=== PATIENT | male | born 1940 | race Caucasian/White ===

== ENCOUNTER 2017-08-03 14:39 | Emergency (ER) | payer MEDICARE, OTHER ==
[2017-08-03] MEDS ORDERED: Sodium Chloride 0.9% 10 ML Syringe FLUSH PRN (14:43)
[2017-08-03] MEDS: Nitroglycerin 0.4 MG Tab.SL SL PRN ×2 (14:49→15:00)
--- NOTE | 2017-08-03 14:52 | EDM.PDOC ---
ED HPI GENERAL MEDICAL PROBLEM - General Chief Complaint: Chest Pain Stated Complaint: chest pain Time Seen by Provider: 08/03/17 14:40 Source of Information: Reports: Patient History Limitations: Reports: No Limitations - History of Present Illness INITIAL COMMENTS - FREE TEXT/NARRATIVE: Patient brought by private vehicle to ER for evaluation of central chest pain present since 10am today. Rates pain at a "2" overall. No nausea. No SOB. No respiratory changes. Was diaphoretic at one point. Lightheaded too. This has improved. Pain radiates down left arm slightly. No other complaints. Pain does not change based on activity/eating/drinking/positional changes. No history of CAD. Family history + for younger brother with CAD/Bypass. Patient denies any significant past health history otherwise. No prior similar episodes of pain. No particular trigger/activity when pain started today. Retired. Worked in construction. Non-smoker. Non-drinker except for rare holidays. gave him 6 baby ASA prior to coming to ER. Chest Pain Score (Numeric/FACES): 2 - Related Data Allergies Allergy/AdvReac Type Severity Reaction Status Date / Time No Known Allergies Allergy Verified 08/03/17 14:45 Home Meds: Home Meds DM Hb/PE/Acetaminophen/Chlorph [[place] Plus Cld-Cough] 1 each PO ONETIME 08/03/17 [History] Past Medical History - Past Health History Medical/Surgical History: Denies Medical/Surgical History Social & Family History - Family History Cardiac: Reports: Bypass, CAD - Tobacco Use Smoking Status *Q: Never Smoker - Alcohol Use Alcohol Use in Last Twelve Months: Yes Alcohol Use Frequency: Rarely ED ROS GENERAL - Review of Systems Review Of Systems: See Below Constitutional: Reports: Diaphoresis, Decreased Appetite. Denies: Fever, Chills , Malaise, Weakness, Fatigue, Night Sweats HEENT: Reports: No Symptoms Respiratory: Reports: No Symptoms. Denies: Shortness of Breath, Pleuritic Chest Pain Cardiovascular: Reports: Chest Pain, Lightheadedness. Denies: Dyspnea on Exertion, Edema, Orthopnea, Palpitations, PND, Syncope Endocrine: Reports: No Symptoms GI/Abdominal: Reports: No Symptoms. Denies: Abdominal Pain, Nausea, Vomiting : Reports: No Symptoms Musculoskeletal: Reports: Arm Pain (left). Denies: Joint Pain, Joint Swelling Skin: Reports: No Symptoms Neurological: Reports: No Symptoms Psychiatric: Reports: No Symptoms Hematologic/Lymphatic: Reports: No Symptoms Immunologic: Reports: No Symptoms ED EXAM, GENERAL - Physical Exam Exam: See Below Exam Limited By: No Limitations General Appearance: Alert, WD/WN, No Apparent Distress Eye Exam: Bilateral Eye: EOMI, Normal Inspection, PERRL Ears: Normal External Exam, Normal Canal, Hearing Grossly Normal, Normal TMs Nose: Normal Inspection, Normal Mucosa Throat/Mouth: Normal Inspection, Normal Lips, Normal Teeth, Normal Gums, Normal Oropharynx, Normal Voice, No Airway Compromise Head: Atraumatic, Normocephalic Neck: Normal Inspection, Supple, Non-Tender, Full Range of Motion Respiratory/Chest: No Respiratory Distress, Lungs Clear, Normal Breath Sounds, No Accessory Muscle Use, Chest Non-Tender Cardiovascular: Normal Peripheral Pulses, Regular Rate, Rhythm, No Edema, No Murmur. No: Diastolic Murmur, Systolic Murmur Peripheral Pulses: 2+: Radial (L), Radial (R) GI/Abdominal: Normal Bowel Sounds, Soft, Non-Tender, No Organomegaly, No Distention, No Mass (Male) Exam: Deferred Rectal (Males) Exam: Deferred Back Exam: Normal Inspection Extremities: Normal Inspection, Normal Range of Motion, Non-Tender, No Pedal Edema, Normal Capillary Refill Neurological: Alert, Oriented, CN II-XII Intact, Normal Cognition, Normal Gait, Normal Reflexes, No Motor/Sensory Deficits Psychiatric: Normal Affect, Normal Mood Skin Exam: Warm, Dry, Intact, Normal Color. No: Diaphoretic EKG INTERPRETATION EKG Date: 08/03/17 Time: 14:37 Rhythm: Other (Sinus Tach) Rate (Beats/Min): 108 [place]: Normal P-Wave: Present QRS: Normal ST-T: Depressed (most pronounced depression noted V1-V3) QT: Normal Comparison: NA - No Prior EKG Course - Vital Signs Last Recorded V/S: Last Vital Signs Temp 36.8 C 08/03/17 15:06 Pulse 87 08/03/17 15:28 Resp 14 08/03/17 15:28 BP 166/97 H 08/03/17 15:28 Pulse Ox 98 08/03/17 15:28 - Orders/Labs/Meds Orders: Active Orders 24 hr Category Date Time Status EKG Documentation Completion [RC] ASDIRECTED Care 08/03/17 14:44 Active Chest 1V Frontal [CR] Stat Exams 08/03/17 14:50 Taken Nitroglycerin [Nitrostat] Med 08/03/17 14:44 Active 0.4 mg SL Q5M PRN Sodium Chloride 0.9% [Saline Flush] Med 08/03/17 14:43 Active 10 ml FLUSH ASDIRECTED PRN Saline Lock Insert [OM.PC] Stat Oth 08/03/17 14:44 Ordered Medication Orders Nitroglycerin (Nitrostat) 0.4 mg SL Q5M PRN PRN Reason: Chest Pain Last Admin: 08/03/17 15:00 Dose: 0.4 mg Admin: 08/03/17 14:49 Dose: 0.4 mg Sodium Chloride (Saline Flush) 10 ml FLUSH ASDIRECTED PRN PRN Reason: Keep Vein Open Last Admin: 08/03/17 15:34 Dose: 10 ml Labs: Laboratory Tests 08/03/17 08/03/17 08/03/17 Range/Units 14:45 14:45 14:45 WBC 15.5 H (4.0-10.2) K/uL RBC 5.29 (4.33-5.41) M/uL Hgb 16.3 (13.1-16.8) g/dL Hct 48.9 (39.0-49.0) % MCV 92.4 (84.0-98.0) fL MCH 30.8 (28.2-33.3) pg MCHC 33.3 (31.7-36.0) g/dL RDW 13.4 (11.2-14.1) % Plt Count 182 (150-350) K/uL Neut % (Auto) 91.5 H (45.0-80.0) % Lymph % (Auto) 6.1 L (10.0-50.0) % [place] % (Auto) 2.1 (2.0-14.0) % Eos % (Auto) 0.1 (0.0-5.0) % Baso % (Auto) 0.2 (0.0-2.0) % Neut # (Auto) 14.15 H (1.40-7.00) K/uL Lymph # (Auto) 0.95 (0.50-3.50) K/uL [place] # (Auto) 0.33 (0.00-1.00) K/uL Eos # (Auto) 0.02 (0.00-0.50) K/uL Baso # (Auto) 0.03 (0.00-0.20) K/uL PT 11.0 (9.8-11.7) SEC INR 1.0 D-Dimer, Quantitative (0-400) ng/mL Sodium 140 (136-145) mmol/L Potassium 4.1 (3.5-5.1) mmol/L Chloride 104 (98-107) mmol/L Carbon Dioxide 26.0 (21.0-32.0) mmol/L BUN 14 (7-18) mg/dL Creatinine 1.22 H (0.51-1.17) mg/dL Est Cr Clr Drug Dosing 49.84 mL/min Estimated GFR (MDRD) 58 mL/min Glucose 169 H (74-106) mg/dL Calcium 9.2 (8.5-10.1) mg/dL Total Bilirubin 0.4 (0.2-1.0) mg/dL AST 22 (15-37) U/L ALT 30 (12-78) U/L Alkaline Phosphatase 63 (46-116) IU/L Creatine Kinase 94 (26-308) U/L Creatine Kinase Index 4.3 H (0.0-2.5) % CK-MB (CK-2) 4.00 H (0.00-3.60) ng/mL Troponin I 0.316 H* (0.000-0.056) ng/mL NT-Pro-B Natriuret Pep 33 (0-125) pg/mL Total Protein 7.1 (6.4-8.2) g/dL Albumin 4.0 (3.4-5.0) g/dL 08/03/17 Range/Units 14:45 WBC (4.0-10.2) K/uL RBC (4.33-5.41) M/uL Hgb (13.1-16.8) g/dL Hct (39.0-49.0) % MCV (84.0-98.0) fL MCH (28.2-33.3) pg MCHC (31.7-36.0) g/dL RDW (11.2-14.1) % Plt Count (150-350) K/uL Neut % (Auto) (45.0-80.0) % Lymph % (Auto) (10.0-50.0) % [place] % (Auto) (2.0-14.0) % Eos % (Auto) (0.0-5.0) % Baso % (Auto) (0.0-2.0) % Neut # (Auto) (1.40-7.00) K/uL Lymph # (Auto) (0.50-3.50) K/uL [place] # (Auto) (0.00-1.00) K/uL Eos # (Auto) (0.00-0.50) K/uL Baso # (Auto) (0.00-0.20) K/uL PT (9.8-11.7) SEC INR D-Dimer, Quantitative 403 H (0-400) ng/mL Sodium (136-145) mmol/L Potassium (3.5-5.1) mmol/L Chloride (98-107) mmol/L Carbon Dioxide (21.0-32.0) mmol/L BUN (7-18) mg/dL Creatinine (0.51-1.17) mg/dL Est Cr Clr Drug Dosing mL/min Estimated GFR (MDRD) mL/min Glucose (74-106) mg/dL Calcium (8.5-10.1) mg/dL Total Bilirubin (0.2-1.0) mg/dL AST (15-37) U/L ALT (12-78) U/L Alkaline Phosphatase (46-116) IU/L Creatine Kinase (26-308) U/L Creatine Kinase Index (0.0-2.5) % CK-MB (CK-2) (0.00-3.60) ng/mL Troponin I (0.000-0.056) ng/mL NT-Pro-B Natriuret Pep (0-125) pg/mL Total Protein (6.4-8.2) g/dL Albumin (3.4-5.0) g/dL Meds: Medications Generic Name Dose Route Start Last Admin Trade Name Freq PRN Reason Stop Dose Admin Nitroglycerin 0.4 mg 08/03/17 14:44 08/03/17 15:00 Nitrostat SL 0.4 mg Q5M PRN Administration Chest Pain Sodium Chloride 10 ml 08/03/17 14:43 08/03/17 15:34 Saline Flush FLUSH 10 ml ASDIRECTED PRN Administration Keep Vein Open Discontinued Medications Generic Name Dose Route Start Last Admin Trade Name [place] PRN Reason Stop Dose Admin Clopidogrel Bisulfate Confirm 08/03/17 15:09 08/03/17 15:11 Plavix Administered 08/03/17 15:10 300 mg Dose Administration 300 mg .ROUTE .STK-MED ONE Metoprolol Tartrate 25 mg 08/03/17 15:13 08/03/17 15:25 Lopressor PO 08/03/17 15:14 25 mg ONETIME ONE Administration Morphine Sulfate 2 mg 08/03/17 15:24 08/03/17 15:34 Morphine IVPUSH 08/03/17 15:25 2 mg ONETIME ONE Administration Ondansetron HCl 4 mg 08/03/17 15:26 08/03/17 15:34 Zofran IVPUSH 08/03/17 15:27 4 mg ONETIME ONE Administration - Radiology Interpretation Free Text/Narrative:: Chest xray negative for pneumothorax, infiltrates. Overall unremarkable. - Re-Assessments/Exams Free Text/Narrative Re-Assessment/Exam: 08/03/17 15:[address] depression, most prominently V1-V3, suspicious for posterior NM. Nitro given x2. Mild improvement in perceived discomfort per patient. Call placed to [facility] and EKG faxed while lab results pending. Discussed patient with Dr. Vargas. He agreed that EKG indicated ischemic injury. accepted transfer of patient with plan to have patient go directly to [facility] operator. Requested that we give Plavix 300mg. Patient also received Metoprolol as well as small dose of MS and Zofran. Initial plan was to have patient be transferred by air. Given amount of time it would take to get aircraft off the ground and to our facility it was determined that ground ambulance would take the same/possibly less amount of time to get patient to [facility]. EMS crew immediately available. Patient transferred to [facility]. Vital signs/property assessment monitor remained stable throughout stay. Pain improved overall. Departure - Departure Time of Disposition: 15:40 Disposition: DC/Tfer to Acute Hospital 02 Reason for Transfer *Q: Primary PCI Indicated Condition: Good Clinical Impression: Acute coronary syndrome Referrals: PCP,None [Primary Care Provider] - - My Orders Last 24 Hours: My Active Orders 08/03/17 14:43 Sodium Chloride 0.9% [Saline Flush] 10 ml FLUSH ASDIRECTED PRN 08/03/17 14:44 EKG Documentation Completion [RC] ASDIRECTED Nitroglycerin [Nitrostat] 0.4 mg SL Q5M PRN Saline Lock Insert [OM.PC] Stat 08/03/17 14:50 Chest 1V Frontal [CR] Stat - Assessment/Plan Last 24 Hours: My Active Orders 08/03/17 14:43 Sodium Chloride 0.9% [Saline Flush] 10 ml FLUSH ASDIRECTED PRN 08/03/17 14:44 EKG Documentation Completion [RC] ASDIRECTED Nitroglycerin [Nitrostat] 0.4 mg SL Q5M PRN Saline Lock Insert [OM.PC] Stat 08/03/17 14:50 Chest 1V Frontal [CR] Stat
[2017-08-03] MEDS ORDERED: Clopidogrel 75 MG Tab ONE (15:09)
[2017-08-03] MEDS ORDERED: Metoprolol Tartrate 25 MG Tab PO ONE (15:13)
[2017-08-03] MEDS ORDERED: Morphine 2 MG/ML Syringe IVPUSH ONE (15:24)
[2017-08-03] MEDS ORDERED: Ondansetron 4 MG/2 ML SDV IVPUSH ONE (15:26)
== END 2017-08-03 15:40 ==
LOC: LL.ED 14:39
DX: I24.9 Acute ischemic heart disease, unspecified (principal); I25.10 Atherosclerotic heart disease of native coronary artery without angina pectoris; Z95.1 Presence of aortocoronary bypass graft
CPT/HCPCS: 36415; 71010; 80053; 82550; 82553; 83880; 84484; 85025; 85379; 85610; 93005; 96374; 96375; 99285; A9270; J2270; J2405; J7050; 93010